=== PATIENT | male | born 2000 | race Caucasian/White ===

== ENCOUNTER 2020-07-13 18:46 | Emergency (ER) | payer OTHER, MEDICAID, SELFPAY ==
[2020-07-13 18:49] VITALS: BP 128/56; PULSE 96; RESP 14; TEMP 36.4; O2SAT 99
--- NOTE | 2020-07-13 19:05 | ED.VIS.GEN ---
History of Present Illness Chief Complaint: Allergic Reaction Informant: Patient Onset: Days Current Severity: Moderate Maximum Severity: Moderate Narrative: Patient presents with erythema and bumps to his bilateral hands. At work last he states his hands came into contact with 1 of the chemicals they use to clean up oil. He went to [facility] was given a prescription for a cream to use. He states when he went to the pharmacy they did not have a Worker's Comp. claim number so could not fill it for him. He has been tried use hydrocortisone cream at home without improvement. - Past Medical History (1) Depression Status: Chronic Past Medical History - Allergies and Home Meds Allergies/Adverse Reactions: Allergies buspirone [From BuSpar] Allergy (Verified 07/13/20 18:49) Rash latex Allergy (Verified 07/13/20 18:49) Rash varenicline [From Chantix] Allergy (Verified 07/13/20 18:49) Rash Primary Care Physician: Asa Russo MD [NON-STAFF] - Prior records reviewed: Yes Review of Systems General: Denies: Chills, Fever Eyes: Denies: Visual changes - bilaterally ENT: Denies: Bilateral ear pain Cardiovascular: Denies: Chest pain Respiratory: Denies: Dyspnea, Cough Gastrointestinal: Denies: Abdominal pain, Nausea, Vomiting, Diarrhea Skin: Reports: Rash Neurological: Denies: Headache Hematologic: Denies: Easy bruising, Easy bleeding Allergy: Denies: Uticaria Physical Exam Vital Signs/Narrative: Vital Signs Temp Pulse Resp BP Pulse Ox 07/13/20 18:49 97.6 F L 96 14 128/56 H 99 Inital Vital Signs reviewed: Yes General: Well nourished, Well developed Head: Normocephalic ENT: Moist mucous membranes Neck: Supple Cardiovascular: Regular rate, Regular rhythm Respiratory: No distress, CTA bilaterally Abdomen: Soft, Nontender Skin: - - Mild erythema with raised lesions over the back of the bilateral hands. There is one area on the proximal left third finger that appears a blister has opened. No sign of secondary cellulitis. Minimal lesions on the palmar surface. Mild lesions on the radial aspects of the bilateral wrists. Psychological: Normal affect Diagnostic/Tx/Re-eval - Medical Decision Making We tried multiple phone numbers for the [facility] but there is no one available to talk to us tonight. Patient will be given an IM injection of Kenalog. He will follow-up with [facility] tomorrow to get his claim number and hopefully the prescription that they had written for him. ED Disposition - Plan for ED Patient: Disposition: Home or Assisted Living Diagnosis: Contact dermatitis Instructions: ED CHEMICAL DERMATITIS Referrals: FABIANA JUNG [GROUP OF PHYSICIANS] - 1 Day
[2020-07-13] MEDS: Triamcinolone Acetonide 40 MG/ML Vial IM (19:52)
[2020-07-13 20:06] VITALS: BP 109/69; PULSE 68; RESP 18; O2SAT 99
== END 2020-07-13 20:07 | disposition home or self-care (01) ==
PROVIDERS: Emergency Provider Emergency Medicine
DX: L25.9 Unspecified contact dermatitis, unspecified cause (principal); S60.423A Blister (nonthermal) of left middle finger, initial encounter; X58.XXXA Exposure to other specified factors, initial encounter; Y93.9 Activity, unspecified; Y92.9 Unspecified place or not applicable; Y99.0 Civilian activity done for income or pay
CPT/HCPCS: 96372; 99282

== ENCOUNTER 2022-06-28 18:40 | Emergency (ER) | payer OTHER, MEDICAID, SELFPAY ==
[2022-06-28 18:41] VITALS: BP 119/82; PULSE 107; RESP 16; TEMP 37; O2SAT 98; BMI 19.5
--- NOTE | 2022-06-28 19:41 | CT_ITS ---
EXAM: CT ABDOMEN AND PELVIS WITH INTRAVENOUS CONTRAST CLINICAL INDICATION: abdominal pain, watery stool, dark stool TECHNIQUE: Helically acquired images were obtained of the abdomen and pelvis with intravenous contrast. This CT exam was performed using one or more of the following dose reduction techniques: automated exposure control, adjustment of the mA and/or kV according to patient size, and/or use of iterative reconstruction technique. This report was created using e[employer] report generation technology. CONTRAST: IV 100mL Isovue-300 COMPARISON: None. FINDINGS: LOWER THORAX: Unremarkable. Lung bases are clear. No cardiomegaly. No significant pericardial effusion. ABDOMEN: LIVER: Unremarkable. Homogeneous. No focal mass. GALLBLADDER AND BILE DUCTS: Unremarkable. No calcified gallstones. No gallbladder distention or wall edema. No intra- or extrahepatic biliary ductal dilation. PANCREAS: Unremarkable. No focal cystic or solid mass. SPLEEN: Unremarkable. Normal size without focal cystic or solid mass. ADRENALS: Unremarkable. No nodules. KIDNEYS AND URETERS: Unremarkable. Normal renal size and position. No hydronephrosis. STOMACH AND BOWEL: There is thick walled cecum and ascending colon and to a lesser extent the transverse and descending colon. No stomach or bowel distention. PELVIS: APPENDIX: No evidence of acute appendicitis. BLADDER: Unremarkable. REPRODUCTIVE: Unremarkable as visualized. No mass. ABDOMEN and PELVIS: INTRAPERITONEAL SPACE: Unremarkable. No ascites or other fluid collection. No free air. BONES/JOINTS: Unremarkable. No suspicious lytic or blastic abnormality. SOFT TISSUES: Unremarkable. No discrete abdominal or pelvic wall hernia. VASCULATURE: Unremarkable. Abdominal aorta is non-dilated. LYMPH NODES: Unremarkable. No enlarged lymph nodes. CT/Abdomen/Pelvis W IV Cont ONLY IMPRESSION: Thickening of the wall of the colon in its entirety greater in the proximal portion which may represent pancolitis perhaps pseudomembranous colitis. There is no obstruction or perforation. No other abnormalities are identified. Electronically Signed: Marcus Black MD at 20:24 EDT ,
--- NOTE | 2022-06-28 19:42 | EX.ED.DYSGE1 ---
HPI History of Present Illness Chief Complaint: Nausea/Vomiting/Diarrhea Detail of Chief Complaint: Watery stool x2 days Informant: patient Narrative Narrative: Patient presents the emergency department complaint of watery stool x2 days. He denies vomiting or diarrhea. Patient states the stool is quite dark and mucousy. He describes diffuse abdominal discomfort. He has been having bowel movements about every 1/2 hour. Patient does not have family history of ulcerative colitis or Crohn's disease. He has had no fever. He denies cough or sore throat. No history of ulcers. Prior similar symptoms: No PFSH PFSH Home Medications trazodone 100 mg tablet 100 mg PO QHS 06/28/22 [History Last Taken Unknown] Allergy/AdvReac Type Severity Reaction Status Date / Time buspirone [From BuSpar] Allergy Rash Verified 06/28/22 18:41 latex Allergy Rash Verified 06/28/22 18:41 varenicline [From Chantix] Allergy Rash Verified 06/28/22 18:41 Surgical History (Updated 06/28/22 @ 20:04 by Denisa Baires) H/O brain surgery Social History Smoking Status: Current every day smoker tobacco type: e-cigarettes ROS ROS ED Review of Systems ROS Unobtainable: other Constitutional Constitutional ED: Reports lethargy; Denies chills, fever(s), sweats or weight loss Eyes Eyes: Denies blurry vision, change in vision or diplopia ENT ENT ED: Denies rhinorrhea or sore throat Cardiovascular Cardiovascular: Reports chest pain and racing heartbeat; Denies orthopnea Respiratory/Chest Respiratory/Chest: Reports dyspnea and dyspnea on exertion; Denies cough, orthopnea or sputum Gastrointestinal Gastrointestinal: Reports abdominal pain, diarrhea and melena; Denies nausea or vomiting Genitourinary Genitourinary ED: Denies dysuria, hematuria or urinary frequency Musculoskeletal Musculoskeletal: Denies arthralgias, back pain, myalgias or neck pain Integumentary Denies abscess, Abrasions or rash Neurologic Neurologic: Denies headache(s) or weakness Psychiatric Psychiatric: Denies anxiety, depression or suicidal thoughts Endocrine Endocrinology: Denies polydipsia, polyphagia or polyuria Hematologic/Lymphatic Hematologic/Lymphatic: Denies easy bleeding, easy bruising or lymphadenopathy Allergic/Immunologic Allergic/Immunologic ED: Denies mouth swelling, tongue swelling or urticaria EXAM Physical Exam Const Vital Signs: 06/28/22 18:41 Temperature 98.6 F Temperature Source Temporal Pulse Rate 107 H Respiratory Rate 16 Blood Pressure 119/82 H Blood Pressure Mean 94 Pulse Ox 98 Oxygen Delivery Method Room Air Positive well nourished and well developed General Appearance ED: well developed and NAD HEENT Reports TM's clear and moist mucous membranes normocephalic and atraumatic; Negative for trauma or tenderness Tympanic Membrane ED: Yes TM's clear Eyes PERRL and EOMs intact bilaterally General Eye ED: Negative for pale conjunctiva or scleral icterus Neck no lymphadenopathy, supple and no JVD General: Negative for tenderness Chest Wall inspection of chest normal and palpation of chest normal Chest: Negative for tenderness Resp normal respiratory effort and clear to auscultation bilaterally Effort and Inspection: Negative for respiratory distress or pain with movement Auscultation: Negative for rhonchi, wheezes or diminished lung sounds Cardio regular rate, regular rhythm, S1 normal heart sound, S2 normal heart sound and no murmurs Peripheral Pulses: pulses 2+ throughout GI normal to inspection, nondistended, normoactive bowel sounds, soft to palpation, non-distended and no masses GI Narrative: Mild diffuse tenderness especially over the epigastric region. There are some mild guarding. There is no rebound, rigidity, or peritoneal signs. Back/Spine no CVA tenderness and no thoracic nor lumbar tenderness Extremity normal to inspection General Extremety ED: Negative for edema General Extremity: Negative for edema Neuro oriented x3, CN's II-XII intact bilaterally, no sensory deficits noted and gait normal Sensorium / Orientation: awake, alert, oriented to person, oriented to place and oriented to time Motor Exam: strength 5/5 throughout and strength abnormal Psych mental status grossly normal Skin no rashes or lesions noted and no wounds MDM MDM MDM Narrative Medical decision making narrative: IV line established on arrival. Patient had lab work that showed a normal white count. Chemistries were unremarkable. Patient had a CT scan of the abdomen pelvis that showed a diffuse colitis with thickening of the wall of the colon which may represent pancolitis perhaps pseudomembranous colitis. There is no obstruction or perforation. I did do a rectal exam and patient had brown stool that was Hemoccult positive. I ordered a lactate and a CRP. Patient does not want to wait for results of C. difficile as well as lactate or CRP. Given that he was on antibiotics recently I did order the C. difficile and stool for enteric pathogen's however patient just recently gave a sample and it can take hours to get results. This point patient will be given referral to GI for follow-up. Advised to return if persistent diarrhea, dehydration, or condition should worsen anyway. Patient does not look toxic or ill otherwise and requested some food to eat because he was hungry. Lab Data Attestation: I reviewed the patient's lab results. Labs: Laboratory Results - last 24 hr 06/28/22 06/28/22 19:56 19:56 WBC 6.0 RBC 5.35 Hgb 16.1 Hct 46.5 MCV 86.9 MCH 30.1 MCHC 34.6 RDW Std Deviation 36.6 RDW Coeff of Kathy 11.5 L Plt Count 218 MPV 9.7 Immature Gran % (Auto) 0.200 Neut % (Auto) 61.0 Lymph % (Auto) 29.0 Karnes % (Auto) 7.8 Eos % (Auto) 1.5 Baso % (Auto) 0.5 Absolute Neuts (auto) 3.7 Absolute Lymphs (auto) 1.74 Nucleated RBC % 0 Sodium 137 Potassium 4.1 Chloride 104 Carbon Dioxide 28.0 Anion Gap 5 BUN 9 Creatinine 0.84 Estim Creat Clear Calc 112.59 Est GFR (MDRD) Af Amer 146 Est GFR (MDRD) Non-Af 120 BUN/Creatinine Ratio 10.8 Glucose 85 Calcium 9.3 Radiography Diagnostic Testing: Clinical Impression(s) from Imaging Studies Abdomen/Pelvis CT 06/28/22 19:41 IMPRESSION: Thickening of the wall of the colon in its entirety greater in the proximal portion which may represent pancolitis perhaps pseudomembranous colitis. There is no obstruction or perforation. No other abnormalities are identified. Electronically Signed: Marcus Black MD at 20:24 EDT , Discharge Plan Triage Chief Complaint: Nausea/Vomiting/Diarrhea ED Provider: Scarlet Bach Dx/Rx/DC Orders Clinical Impression: Colitis Instructions: ED Understanding Colitis, ED Diarrhea, Unknown Cause Prescriptions: No Action trazodone 100 mg Tablet 100 mg PO QHS Primary Care Provider: Jayden Marquez Referrals: Khalida Gentile DO [Non-Staff] - Friend,DO Benjamin [Med Staff - Active Staff] - 3-5 Days Disposition Disposition: Home, Self Care
[2022-06-28 20:02] LABS: Absolute Lymphocyte Count 1.74 X10^3/uL (0.83-4.51); Absolute Neutrophil Count 3.7 X10^3/uL (2.0-7.7); Basophil# 0.03 X10^3/uL; Basophil% 0.5 % (0-1); Eosinophil# 0.09 X10^3/uL; Eosinophils% 1.5 % (0-5); Hematocrit 46.5 % (40-54); Hemoglobin 16.1 g/dL (13.0-16.5); Lymphocyte # 1.74 X10^3/ul (0.83-4.51); Mean Corp Hgb Conc 34.6 g/dL (32-36); Mean Corpuscular Hgb 30.1 pg (27.0-32.0); Mean Corpuscular Volume 86.9 fL (80-94); Mean Platelet Vol. 9.7 fl (6.2-12.0); Monocyte# 0.47 X10^3/uL; Monocyte% 7.8 % (0-10); NRBC Flagged by Analyzer 0 % (0-5); Neutrophil # 3.65 X10^3/uL (2.7-7.7); Platelet Count 218 K/mm3 (150-450); RBC Distribution Width CV 11.5 % (11.6-14.6); RBC Distribution Width SD 36.6 fl (35.1-43.9); Red Blood Count 5.35 M/mm3 (4.6-6.2)
[2022-06-28] MEDS: 0.9% Normal Saline 1,000 ML 999 ML IV (20:03)
[2022-06-28 20:15] LABS: Anion Gap 5 (5-15); BUN 9 mg/dL (7-18); BUN/Creat Ratio 10.8 RATIO (10-20); Calcium,Total 9.3 mg/dL (8.5-10.1); Chloride 104 mmol/L (98-107); Creatinine, Serum 0.84 mg/dL (0.70-1.30); EST Glomerular Filtration Rate 120 mL/min (>60); Est Glom Filt Rate - Afr Amer 146 mL/min (>60); Estimated Creatinine Clearance 112.59 ml/min; Glucose 85 mg/dL (74-106); Potassium 4.1 mmol/L (3.5-5.1); Sodium Level 137 mmol/L (136-145)
[2022-06-28 22:01] LABS: Lactic Acid 0.4 mmol/L (0.4-1.9)
== END 2022-06-28 21:48 | disposition home or self-care (01) ==
PROVIDERS: Emergency Provider Emergency Medicine; PCP Student in an Organized Health Care Education/Training Program; Visit Provider Emergency Medicine
DX: K52.9 Noninfective gastroenteritis and colitis, unspecified (principal); R19.5 Other fecal abnormalities; R07.9 Chest pain, unspecified; R06.00 Dyspnea, unspecified; F17.210 Nicotine dependence, cigarettes, uncomplicated; Z79.899 Other long term (current) drug therapy
CPT/HCPCS: 74177; 80048; 82274; 83605; 85025; 86140; 87493; 87506; 96360; 99284; J7030; Q9967; A4216